=== PATIENT | male | born 1960 | race American Indian/Alaskan Native ===

== ENCOUNTER 2020-05-02 23:00 | Emergency (ER) | payer OTHER ==
--- NOTE | 2020-05-03 00:16 | Emergency Department Report ---
ED Male HPI - General Chief complaint: Abdominal Pain Stated complaint: CATH LINE Time Seen by Provider: 05/03/20 00:13 Source: patient Mode of arrival: Ambulatory Limitations: No Limitations - History of Present Illness Initial comments: 60-year-old male, history of prostate cancer, presents to ED with decreased urine output in Flores catheter x6 hours. Patient states his bladder feels full. States he has been drinking lots of water. He denies any blood in the urine. Patient underwent radical prostatectomy on yesterday [facility]. Patient reports urologist is Dr. Fam Menjivar. Patient states he called his urologist who told him to come to the nearest ED. MD Complaint: other -: This afternoon Location: abdomen Severity: moderate Quality: aching Consistency: constant Improves with: none Worsens with: none urinary retention. denies: blood in urine - Related Data Allergies Allergy/AdvReac Type Severity Reaction Status Date / Time No Known Allergies Allergy Unverified 05/02/20 23:34 ED Review of Systems ROS: Stated complaint: CATH LINE Other details as noted in HPI Comment: All other systems reviewed and negative Constitutional: denies: chills, fever Gastrointestinal: abdominal pain Genitourinary: as per HPI ED Past Medical Hx - Past Medical History Previous Medical History?: Yes Hx of Cancer: Yes (Prostate) - Surgical History Past Surgical History?: Yes Additional Surgical History: Radical Prostatectomy - Social History Smoking Status: Never Smoker Substance Use Type: None ED Physical Exam - General Limitations: No Limitations General appearance: alert, in no apparent distress - Head Head exam: Present: atraumatic, normocephalic - Eye Eye exam: Present: normal appearance, EOMI - ENT ENT exam: Present: mucous membranes moist - Neck Neck exam: Present: normal inspection - Respiratory Respiratory exam: Present: normal lung sounds bilaterally. Absent: respiratory distress - Cardiovascular Cardiovascular Exam: Present: regular rate, normal rhythm - GI/Abdominal GI/Abdominal exam: Present: soft, tenderness (Suprapubic). Absent: distended - exam: Present: other (Flores catheter in place, minimal urine in bag) - Extremities Exam Extremities exam: Present: normal inspection - Neurological Exam Neurological exam: Present: alert, oriented X3 - Psychiatric Psychiatric exam: Present: normal affect, normal mood - Skin Skin exam: Present: warm, dry, intact, normal color ED Course Vital Signs 05/02/20 05/03/20 05/03/20 23:24 01:01 01:31 Temperature 98.6 F Pulse Rate 88 Respiratory 16 Rate Blood Pressure 128/84 128/84 126/80 O2 Sat by Pulse 95 87 97 Oximetry - Reevaluation(s) Reevaluation #1: 05/03/20 01:10 RN flushed Flores. She reports seeing a very small clot was dislodged with the flushing, however no significant urine output. Patient did however have soaking of the bandages located in the left flank area (the site where ESTHER drain was removed on yesterday) after Flores was flushed with saline. - Consultations Consultation #1: 05/03/20 01:23 [place] transfer line contacted. I spoke with Dr. Garcia, urologist on-call. Suspects Flores catheter may have been dislodged. Would like patient to come to [facility] ED to be seen. Patient states his is here and will drive him to [place]. He refuses ambulance transfer. ED Medical Decision Making - Medical Decision Making 60-year-old male with recent radical prostatectomy secondary to prostate cancer, presents to the ED with decreased urine output in Flores catheter. Spoke with patient's urologist, concerned that catheter may have migrated. She wants julia price to come to [facility] ED where they will evaluate. Patient does not want to be transported via ambulance, he states his is here and will drive him over. Patient will be discharged at this time. - Differential Diagnosis Flores obstruction, Flores migration Critical care attestation.: If time is entered above; I have spent that time in minutes in the direct care of this critically ill patient, excluding procedure time. ED Disposition Clinical Impression: Dislodged Flores catheter Disposition: DC-01 TO HOME OR SELFCARE Is pt being admited?: No Condition: Stable Instructions: Indwelling Urinary Catheter Care, Adult Referrals: PRIMARY CARE, [Primary Care Provider] - 3-5 Days Time of Disposition: 01:25
[2020-05-03 01:33] VITALS: BP 126/80
== END 2020-05-03 01:47 | disposition home or self-care (01) ==
LOC: ED 23:00
DX: T83.098A Other mechanical complication of other urinary catheter, initial encounter (principal); Z98.890 Other specified postprocedural states; Z85.46 Personal history of malignant neoplasm of prostate; Y92.89 Other specified places as the place of occurrence of the external cause
CPT/HCPCS: 99282